=== PATIENT | female | born 1955 | race American Indian/Alaskan Native ===

== ENCOUNTER 2017-04-03 05:32 | Emergency (ER) | payer MEDICARE ==
[2017-04-03] MEDS ORDERED: CATAPRES ONE (06:58)
[2017-04-03 07:03] LABS: Basophils % (Auto) 0.7 % (0.0-1.8); Eosinophils % (Auto) 0.7 % (0.0-4.3); Hematocrit 36.5 % (30.3-42.9); Hemoglobin 12.2 gm/dl (10.1-14.3); Mean Corpuscular HGB Conc 34 % (30-34); Mean Corpuscular Hemoglobin 29 pg (28-32); Mean Corpuscular Volume 87 fl (79-97); Platelet Count 152 K/mm3 (140-440); Red Blood Count 4.21 M/mm3 (3.65-5.03); Red Cell Distribution Width 14.4 % (13.2-15.2); White Blood Count 7.9 K/mm3 (4.5-11.0)
[2017-04-03] MEDS: CATAPRES PO ONE (07:11)
[2017-04-03 07:12] VITALS: BP 215/157
--- NOTE | 2017-04-03 07:12 | XRay Report ---
ROUTINE CHEST, TWO VIEWS: HISTORY: Shortness of breath. Compared to 06/17/16. The lungs are severely hyperinflated consistent with underlying COPD. Moderate cardiomegaly and pulmonary venous congestion have increased slightly since the previous exam. A 2-lead pacemaker device has been placed. No evidence for pneumonia, large pleural effusion or pneumothorax. The bony structures are grossly intact. IMPRESSION: COPD. Moderate cardiomegaly and pulmonary venous congestion but no CHF.
[2017-04-03 07:21] LABS: Anion Gap 21 mmol/L; BUN/Creatinine Ratio 15.55; Blood Urea Nitrogen 14 mg/dL (7-17); Calcium 8.5 mg/dL (8.4-10.2); Carbon Dioxide 26 mmol/L (22-30); Glucose 103 mg/dL (65-100); Potassium 3.2 mmol/L (3.6-5.0); Sodium 144 mmol/L (137-145)
[2017-04-03 07:57] LABS: Cholesterol 150 mg/dL (50-199); HDL Cholesterol 52 mg/dL (40-59); LDL Cholesterol,Direct 83 mg/dL (50-130); Triglycerides 75 mg/dL (2-149)
== END 2017-04-03 15:30 | disposition left against medical advice (07) ==
LOC: ED 05:32
DX: R07.9 Chest pain, unspecified (principal); R06.09 Other forms of dyspnea; Z53.21 Procedure and treatment not carried out due to patient leaving prior to being seen by health care provider
CPT/HCPCS: 36415; 71020; 80048; 80061; 84484; 85025; 93005; 93010

== ENCOUNTER 2017-08-06 10:43 | Emergency (ER) | payer MEDICARE ==
[2017-08-06 11:59] VITALS: BP 203/139
--- NOTE | 2017-08-06 12:52 | XRay Report ---
CHEST XRAY, 2 VIEWS: History: Short of breath. Findings: There is mild cardiomegaly. 2-lead pacemaker devices unchanged since 04/03/17. Pulmonary vessels are within normal limits. The lungs are clear and fully expanded. No infiltrate, pleural effusion or pneumothorax. Normal thoracic cage. IMPRESSION: Cardiomegaly.
[2017-08-06 14:57] LABS: Basophils # (Auto) 0.1 K/mm3 (0.0-0.1); Basophils % (Auto) 0.7 % (0.0-1.8); Eosinophils % (Auto) 0.4 % (0.0-4.3); Hematocrit 40.7 % (30.3-42.9); Hemoglobin 13.4 gm/dl (10.1-14.3); Lymphocytes # (Auto) 1.7 K/mm3 (1.2-5.4); Lymphocytes % (Auto) 21.8 % (13.4-35.0); Mean Corpuscular HGB Conc 33 % (30-34); Mean Corpuscular Hemoglobin 28 pg (28-32); Mean Corpuscular Volume 86 fl (79-97); Monocytes # (Auto) 0.9 K/mm3 (0.0-0.8); Monocytes % (Auto) 12.1 % (0.0-7.3); Platelet Count 172 K/mm3 (140-440); Red Blood Count 4.74 M/mm3 (3.65-5.03); Red Cell Distribution Width 15.4 % (13.2-15.2)
[2017-08-06 15:17] LABS: BUN/Creatinine Ratio 19; Blood Urea Nitrogen 19 mg/dL (7-17); Calcium 9.3 mg/dL (8.4-10.2); Hemolysis Index 3
[2017-08-06 16:57] LABS: Chol/HDL Ratio 2.41 %; HDL Cholesterol 55 mg/dL (40-59); LDL Cholesterol,Direct 62 mg/dL (50-130)
== END 2017-08-07 02:00 | disposition left against medical advice (07) ==
LOC: ED 10:43
DX: S99.911A Unspecified injury of right ankle, initial encounter (principal); R07.9 Chest pain, unspecified; Z53.21 Procedure and treatment not carried out due to patient leaving prior to being seen by health care provider; X58.XXXA Exposure to other specified factors, initial encounter; Y93.89 Activity, other specified; Y99.8 Other external cause status; Y92.89 Other specified places as the place of occurrence of the external cause
CPT/HCPCS: 36415; 71046; 80048; 80061; 83880; 84484; 85025; 93005; 93010